=== PATIENT | male | born 1985 | race American Indian/Alaskan Native ===

== ENCOUNTER 2020-01-18 22:12 | Emergency (ER) | payer SELFPAY ==
--- NOTE | 2020-01-18 23:12 | XRay Report ---
LEFT HAND 4 VIEWS INDICATION / CLINICAL INFORMATION: dog bite COMPARISON: None available. FINDINGS: BONES / JOINT(S): No acute fracture or subluxation. No significant arthritis. SOFT TISSUES: There is soft tissue gas noted posteriorly in the proximal hand. There is soft tissue s welling. No radiopaque foreign bodies are seen. ADDITIONAL FINDINGS: None. Signer Name: Arron Esqueda MD Signed: 01/18/2020 11:07 PM Workstation Name: [id number]
--- NOTE | 2020-01-18 23:14 | XRay Report ---
LEFT WRIST 2 VIEWS INDICATION / CLINICAL INFORMATION: dog bite COMPARISON: None available. FINDINGS: BONES / JOINT(S): No acute fracture or subluxation. No significant arthritis. There is an old healed fracture of the distal ulna SOFT TISSUES: There is soft tissue swelling and soft tissue gas noted posteriorly in the wrist and pr oximal hand. ADDITIONAL FINDINGS: No radiopaque foreign bodies are seen. Signer Name: Arron Esqueda MD Signed: 01/18/2020 11:09 PM Workstation Name: [id number]
[2020-01-18] MEDS ORDERED: LIDOCAINE-MPF (1%) 10 MG/1 ML VIAL 5 ML ONE (23:47)
[2020-01-19] MEDS ORDERED: oxyCODONE /ACETAMINOPHEN 5-325MG TAB PO ONE (00:50)
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
== END 2020-01-19 01:32 | disposition home or self-care (01) ==
LOC: ED 22:12
DX: S61.412A Laceration without foreign body of left hand, initial encounter (principal); S61.432A Puncture wound without foreign body of left hand, initial encounter; W54.0XXA Bitten by dog, initial encounter; Y93.89 Activity, other specified; Y92.89 Other specified places as the place of occurrence of the external cause; Y99.8 Other external cause status
CPT/HCPCS: 99283

== ENCOUNTER 2020-02-07 21:22 | Emergency (ER) | payer SELFPAY ==
[2020-02-07 21:31] VITALS: BP 142/84
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
== END 2020-02-07 23:50 | disposition home or self-care (01) ==
LOC: ED 21:22
DX: S51.832D Puncture wound without foreign body of left forearm, subsequent encounter (principal); Z79.899 Other long term (current) drug therapy; W54.0XXD Bitten by dog, subsequent encounter
CPT/HCPCS: 99282